=== PATIENT | female | born 1990 | race African-American/Black ===

== ENCOUNTER 2020-12-29 00:26 | Emergency (ER) | payer OTHER ==
[2020-12-29 01:03] VITALS: BP 128/76; PULSE 75; TEMP 98.8; BMI 23.6
== END 2020-12-29 01:51 | disposition home or self-care (01) ==
LOC: JER 00:26
DX: Z11.52 Encounter for screening for COVID-19 (principal)
CPT/HCPCS: 99283-25; C9803; U0003; U0005

== ENCOUNTER 2022-07-06 16:50 | Emergency (ER) | payer OTHER ==
[2022-07-06 17:16] VITALS: BP 127/87; PULSE 80; RESP 18; TEMP 99.2; BMI 22.8
== END 2022-07-06 17:31 | disposition home or self-care (01) ==
LOC: FER 16:50
DX: Z04.1 Encounter for examination and observation following transport accident (principal)
CPT/HCPCS: 99281-25